=== PATIENT | male | born 1965 | race Caucasian/White ===

== ENCOUNTER 2020-07-07 08:45 | Outpatient (CLI) | payer OTHER, SELFPAY | END 2020-07-07 08:46 | LOC: ANHCOVIDVC 08:45 | PROVIDERS: PCP Orthopaedic Surgery | DX: Z23 Encounter for immunization (principal) | CPT/HCPCS: 0001A; 91300 ==

== ENCOUNTER 2020-07-28 08:44 | Outpatient (CLI) | payer OTHER, SELFPAY | END 2020-07-28 08:45 | disposition home or self-care (01) | LOC: ANHCOVIDVC 08:45 | PROVIDERS: PCP Orthopaedic Surgery | DX: Z23 Encounter for immunization (principal) | CPT/HCPCS: 0002A; 91300 ==

== ENCOUNTER 2023-03-24 11:03 | Emergency (ER) | payer OTHER, SELFPAY ==
--- NOTE | ~2023-03-24 | CT_ITS ---
EXAMINATION: CT BRAIN W/O DATE: 03/24/2023 13:00 INDICATION: Head injury. Anticoagulation TECHNIQUE: Computed tomography (CT) of the head was performed without intravenous contrast. The dose- length product was 605.33 mGy-cm. Automated exposure control and iterative reconstruction technique were employed. COMPARISON: No prior studies for comparison. FINDINGS: Normal brain parenchymal volume for age. Normal malone-white differentiation. No acute intrac ranial hemorrhage, infarction, mass or mass effect. No ventriculomegaly or midline shift. Midline sagittal images demonstrate a normal corpus callosum, c raniovertebral junction and sella turcica. Basilar cisterns are patent. There is a small air-fluid level left maxillary sinus. Small mucous retention cyst left sphenoid sinu s. Mastoids are pneumatized. No depressed skull fractures. IMPRESSION: 1. No acute intracranial abnormality. 2: Mild sinus disease. Reviewed, dictated and finalized at [facility]. TOR
--- NOTE | ~2023-03-24 | XR_ITS ---
XR shoulder LT min 2V 03/24/2023 13:05 Indication: Left shoulder pain after fall Procedure: 4 views left shoulder Comparison: No prior studies for comparison. Findings: Impression: 1: Reviewed, dictated and finalized at location [facility]. CTOR OPERATIONS BROADCAST Impression: 1:
--- NOTE | ~2023-03-24 | CT_ITS ---
EXAMINATION: CT cervical spine wo con DATE: 03/24/2023 13:00 INDICATION: Neck pain after fall down steps. TECHNIQUE: Computed tomography (CT) of the cervical spine was performed without intravenous contrast. The dose-length product was 470 mGy-cm. Automated exposure control and iterative reconstruction tech nique were employed. COMPARISON: None FINDINGS: Straightening of cervical lordosis. There is disc narrowing and endplate hypertrophy at C5- 6 and to a lesser degree C6-7. There is degenerative anterolisthesis at C2-3. Odontoid process is nor mal. There is moderate multilevel uncinate hypertrophy. No acute fracture or traumatic malalignment. Lung apices are normal. Craniovertebral junction is normal. No evidence for perched facet. Spinous pr ocesses are normal. IMPRESSION: 1. No acute abnormality of the cervical spine. 2: Moderate cervical spondylosis. Reviewed, dictated and finalized at location L. 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
[2023-03-24 11:12] VITALS: BP 126/74; PULSE 76; RESP 16; TEMP 36.5; O2SAT 98
--- NOTE | 2023-03-24 13:45 | ED.FALL ---
HPI - Fall General Chief Complaint: Fall Stated Complaint: FALL, HEAD INJURY ON THINNERS Time Seen by Provider: 03/24/23 12:09 Source: patient and RN notes reviewed Mode of arrival: ambulatory Limitations: no limitations History of Present Illness HPI Narrative: This is a 57 year old male with history of afib on chronic anticoagulation who presents for evaluation of head injury. Patient states he accidentally fell down 4 steps on to his left shoulder. He reports he hit front of his left head on wooden floor. HE denies any LOC. She reports headache and left shoulder pain. Pain worse with abduction. He denies nausea and vomiting. HE denies any other injuries. Related Data Home Medications Medication Instructions Recorded Confirmed ascorbic acid (vitamin C) 1,000 mg 1 g PO DAILY 02/23/23 capsule calcium carbonate 600 mg calcium 600 mg PO DAILY 02/23/23 (1,500 mg) tablet (Calcium) coenzyme Q10 10 mg capsule (Co 10 mg PO ONCE 02/23/23 Q-10) fluticasone propionate 50 1 spray intranasal DAILY 02/23/23 mcg/actuation nasal spray,suspension (Flonase Allergy Relief) metoprolol tartrate 25 mg tablet 25 mg PO BID 02/23/23 omega 1-rch-jul-fish oil 300 1 cap PO DAILY 02/23/23 mg-1,000 mg capsule (Fish Oil) rivaroxaban 20 mg tablet (Xarelto) 20 mg PO DAILY 02/23/23 tumeric 100 mg-camila 150 mg-olive cap PO 02/23/23 50 mg-oreg 150 mg-caprylate capsule Allergies Allergy/AdvReac Type Severity Reaction Status Date / Time loratadine Allergy Unknown Tachycardia Verified 02/23/23 16:08 pseudoephedrine Allergy Unknown Tachycardia Verified 02/23/23 16:08 Review of Systems Review of Systems: All systems reviewed & are unremarkable except as noted in HPI and below [facility] Past Medical History Medical History Allergy history, narcotic History of postoperative nausea and vomiting Sleep apnea Surgical History Surgical History History of cardiac radiofrequency ablation for Atrial Fibrillation - 03/2020, 11/2022 History of carpal tunnel release November & February 2018 Family History Family History (Updated 02/23/23 @ 16:17 by Chiara Patel) Unknown Diabetes mellitus Atrial fibrillation, chronic Social History Social History Smoking status: Never smoker Alcohol intake: never Lack of Transportation: No Lack of Food: Never True Current Housing: I Have Housing Concerned About Future Housing: No Difficulty Paying Gas/Electric Bills: No Difficulty Paying for Meds: No Currently Unemployed: No Education: Bachelor's Degree Difficulty w/ Childcare or Family Care: No Exam Const: General: no acute distress and alert Nutritional Appearance: well nourished Orientation/consciousness: patient oriented x3 Limitations: no limitations HENMT: Head: normal to inspection Face and sinus: normal facial exam and sinuses nontender Mouth: Yes Normal oral and palatal mucosa present, Yes lip normal and Yes moist mucous membranes Throat: posterior oropharynx normal and uvula midline Eyes: EOM: EOMs intact bilaterally Neck: Other: in cervical collar Chest: Chest palpation & inspection: normal inspection of the chest Resp: Effort & Inspection: normal respiratory effort Auscultation: clear to auscultation bilaterally Cardio: Rate: regular rate Rhythm: regular rhythm Heart sounds: no murmurs Skin: General skin exam: normal color Rashes: no rashes Wounds: no wounds Neuro: General: patient oriented x3, moves all extremities and CN's II-XI intact bilaterally Extrem: General: no clubbing, cyanosis or edema and no pedal edema Other: no left shoulder deformity or swelling. Pain will abduction Psych: Mental Status: mental status grossly normal Affect: normal affect Attitude: cooperative Course Reevalu
[2023-03-24 14:00] VITALS: BP 130/70; PULSE 80; RESP 16; TEMP 36.7; O2SAT 100
== END 2023-03-24 14:01 | disposition home or self-care (01) ==
PROVIDERS: Emergency Provider General Practice
DX: S09.90XA Unspecified injury of head, initial encounter (principal); S46.912A Strain of unspecified muscle, fascia and tendon at shoulder and upper arm level, left arm, initial encounter; S16.1XXA Strain of muscle, fascia and tendon at neck level, initial encounter; W10.9XXA Fall (on) (from) unspecified stairs and steps, initial encounter
CPT/HCPCS: 70450; 72125; 73030; 99284; L0140

== ENCOUNTER → 2023-04-12 08:59 | Outpatient (CLI) | payer OTHER, SELFPAY ==
--- NOTE | ~2023-04-12 | MR_ITS ---
MRI of the left shoulder Technique: Axial proton-density fat-sat images, coronal proton density fat-sat and T2 fat-sat images, and sagittal T1-weighted and T2 fat-sat images were acquired. Clinical History: Pain Findings: There is moderate AC joint degenerative change, with small subacromial spur present. Coraco clavicular, coracoacromial, and coracohumeral ligaments are intact. There is mild supraspinatus and infraspinatus tendinosis, without partial or full-thickness tear. The re is mild subscapularis tendinosis. Tendon of the long head of the biceps is intact. Probable degenerative tear of the superior labrum present. Probable degenerative tearing of the anter oinferior labrum, with tiny paralabral cyst present. Inferior glenohumeral ligament is intact. No degenerative change or effusion of the glenohumeral join t. There is minimal fluid in subacromial/subdeltoid bursa. No muscle atrophy or edema. Impression: Degenerative superior labral tear. Probable additional degenerative anteroinferior labral tear with tiny para labral cyst. Moderate AC joint degenerative change. Mild rotator cuff tendinosis. Reviewed, dictated and finalized at [facility]. 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 Probable additional degenerative anteroinferior labral tear with tiny para labr al cyst. Moderate AC joint degenerative change. Mild rotator cuff tendinosis.
== END ==
PROVIDERS: PCP Orthopaedic Surgery; Visit Provider Orthopaedic Surgery
DX: M19.012 Primary osteoarthritis, left shoulder (principal); S43.432A Superior glenoid labrum lesion of left shoulder, initial encounter; X58.XXXA Exposure to other specified factors, initial encounter
CPT/HCPCS: 73221